=== PATIENT | male | born 1995 | race African-American/Black ===

== ENCOUNTER 2017-01-14 15:28 | Emergency (ER) | payer OTHER ==
--- NOTE | 2017-01-14 16:46 | ED INFLUENZA/URI COMPLAINT ---
History of Present Illness General Chief Complaint: Nausea, Vomiting, Diarrhea Stated Complaint: VOMITING; FEVER; WEIGHT LOSE Source: patient Exam Limitations: no limitations Vital Signs & Intake/Output Vital Signs & Intake/Output Vital Signs Date Time Temp Pulse Resp B/P Pulse O2 O2 Flow FiO2 Ox Delivery Rate 01/14 1801 82 18 124/59 96 01/14 1710 100 Room Air 01/14 1603 98.9 135 22 140/93 98 Room Air Allergies Coded Allergies: apple (MOUTH TINGLES AND FEELS WEIRD 01/14/17) Uncoded Allergies: BLACK TEA (VOMITING 01/14/17) Reconcile Medications Ondansetron (Zofran Odt) 4 MG TAB.RAPDIS 1 TAB SL TID PRN NAUSEA Prednisone 20 MG TABLET 2 TAB PO DAILY inflammation Triage Note: PER PT BAD CASE OF MONO, DX AT SCHOOL ON WEDNESDAY, WT LOSS, RASH DECREASED PO INTAKE. WT LOSS WEAKNESS. 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 Triage Nurses Notes Reviewed? yes HPI: 21-year-old male here with his father with complaints of complications from mononucleosis infection. He states that approximately 11 days ago he started feeling ill, fever or flulike illness generalized body aches sore throat painful swollen lymph nodes. [facility] and negative strep test and a mono test and a mono test was positive. This was 4 days ago. He states he has not had any specific treatment except for trying to drink fluids however his appetite is getting worse, he is barely taking in any fluids because it is painful and difficult to swallow he is not feeling well. He has persistent fever and body aches and chills that is improved with Motrin. He feels weak and dehydrated. He also had an abscess to the right anterior thigh that was treated one week ago by his primary care doctor with Bactrim, he took all the Bactrim except for 2 days worth and the abscess has resolved over 2 days ago he started having a diffuse whole body maculopapular red rash. He has no itching or swelling of the skin and no wheezing and no hives. Past History Travel History Traveled to [place] past 21 day No Medical History Any Pertinent Medical History? none Neurological: NONE EENT: NONE Cardiovascular: NONE Respiratory: NONE Gastrointestinal: NONE Hepatic: NONE Renal: NONE Musculoskeletal: NONE Psychiatric: NONE Endocrine: NONE Blood Disorders: NONE Surgical History Surgical History: non-contributory Psychosocial History What is your primary language Arabic Tobacco Use: Current Not Daily Family History Hx Contributory? No Review of Systems Review of Systems Constitutional: Reports: see HPI. Respiratory: Reports: no symptoms. Cardiovascular: Reports: no symptoms. GI: Reports: no symptoms. Genitourinary: Reports: no symptoms. Musculoskeletal: Reports: no symptoms. Neurological/Psychological: Reports: no symptoms. Hematologic/Endocrine: Reports: no symptoms. Immunologic/Allergic: Reports: no symptoms. All Other Systems: Reviewed and Negative Physical Exam Physical Exam Ears, Nose, Throat: pharyngeal erythema, tonsillar exudate Respiratory: normal breath sounds, chest non-tender, no respiratory distress Cardiovascular: tachycardia Comments: Well-developed well-nourished no apparent distress. HEENT: Atraumatic, extraocular motion intact Dry mucous membranes Positive pharyngeal erythema which is moderate to severe, tonsillar hypertrophy which is moderate, tonsillar exudate bilaterally Neck: Supple, positive diffuse moderate cervical lymphadenopathy Back: Nontender Respiratory: No respiratory distress Abdomen: Soft nontender nondistended, no hepatosplenomegaly Extremities: No edema, full range of motion Neuro: Alert and oriented x3 Psych: Mood affect normal, normal memory normal judgment. Skin: Warm and dry, diffuse maculopapular rash noted, nonblanching, no tenderness or pain Core Measures Severe Sepsis Present: No Septic Shock Present: No Progress Differential Diagnosis: influenza, meningitis, neutropenia, otitis, pneumonia, pharyngitis, sinusitis, caity, DEHYDRATION, ELECTROLYTE ABNORMALITY Plan of Care: Orders Procedure Date/time Status Saline Lock 01/14 1640 Active COMPREHENSIVE METABOLIC PANEL 01/14 1640 Complete CBC WITHOUT DIFFERENTIAL 01/14 1640 Complete Laboratory Tests 01/14/17 1700: Anion Gap 14, Estimated GFR > 60, BUN/Creatinine Ratio 11.5, Glucose 95, Calcium 9.5, Total Bilirubin 1.0, AST 565 H, ALT 728 H, Alkaline Phosphatase 106, Total Protein 7.9, Albumin 4.2, Globulin 3.7, Albumin/Globulin Ratio 1.1, CBC w Diff MAN DIFF ORDERED, RBC 4.71, MCV 90.7, MCH 29.9, RDW 13.7, MPV 6.9 L, Segmented Neutrophils 43, Band Neutrophils 1, Lymphocytes 48, Monocytes 8, Platelet Estimate ADEQUATE, Normocytic RBCs VERIFIED, Normochromic RBCs VERIFIED , PUBS MCHC 32.9 L Initial ED EKG: none Comments: Patient treated with 2 L IV fluid and 10 mg of Decadron IV. Upon reevaluation he is feeling much better. His heart rate now in the 80s from 135. His rash has nearly completely resolved, likely this was allergic secondary to the Bactrim and not from the mononucleosis and I have recommended that he is not taking more Bactrim or sulfa based medication. We will continue the Decadron. Continue by mouth fluids as outpatient. He does not require hospitalization at this time, he is able to tolerate fluids by mouth. He is stable for discharge home. He is to return with worsening symptoms. Departure Departure Disposition: HOME OR SELF CARE Condition: Stable Clinical Impression Primary Impression: Mononucleosis Secondary Impressions: Dehydration Referrals: FIONA VAUGHN,ERLINDA ALEXANDRE (PCP/Family) Additional Instructions: Drink plenty of water Take prednisone as directed Return to the ER if you are unable to drink, unable to swallow, feeling lightheaded dizzy weak or extreme thirst. Departure Forms: Customer Survey General Discharge Information Prescriptions: Current Visit Scripts Prednisone 2 TAB PO DAILY #10 TAB Ondansetron (Zofran Odt) 1 TAB SL TID PRN NAUSEA #15 TAB
[2017-01-14 17:17] LABS: HEMATOCRIT 42.7 % (42-52); MEAN CORPUSCULAR HGB 29.9 PG (27.0-31.0); MEAN CORPUSCULAR HGB CONC 32.9 G/DL (33.0-37.0); MEAN CORPUSCULAR VOLUME 90.7 FL (80.0-94.0); MEAN PLATELET VOLUME 6.9 FL (7.4-10.4); PLATELET COUNT 299 /CUMM (130-400); RBC DISTRIBUTION WIDTH 13.7 % (11.5-14.5); RED BLOOD CELL CT 4.71 /CUMM (4.70-6.10); WHITE BLOOD CELL COUNT 15.3 /CUMM (4.8-10.8)
[2017-01-14 18:01] VITALS: BP 124/59
[2017-01-14] MEDS ORDERED: PREDNISONE20 M1 PO (18:26)
[2017-01-14] MEDS ORDERED: ZOFRAN ODT4 M1 SL (18:38)
== END 2017-01-14 18:42 ==
LOC: ERH 15:28
PROVIDERS: Physician Assistant Surgical
DX: B27.90 Infectious mononucleosis, unspecified without complication (principal); E86.0 Dehydration
CPT/HCPCS: 96361; 96374; 99291